=== PATIENT | female | born 1995 | race Caucasian/White ===

== ENCOUNTER 2019-12-02 19:23 | Emergency (ER) | payer MEDICAID ==
[2019-12-02] MEDS ORDERED: Take Home: Ketorolac 10 MG Tab, 4 Tab Pack PO ONE (19:42)
[2019-12-02] MEDS ORDERED: Take Home: Sulfamethoxazole/Trimethoprim 800-160 MG Tab, 2 Tab Pack PO ONE (19:42)
[2019-12-03 00:12] VITALS: BP 125/80; PULSE 90
--- NOTE | 2019-12-03 06:04 | EDM.PDOC ---
ED HPI GENERAL MEDICAL PROBLEM - General Chief Complaint: Upper Extremity Injury/Pain Stated Complaint: THUMB INFECTED Time Seen by Provider: 12/02/19 19:40 Source of Information: Reports: Patient History Limitations: Reports: No Limitations - History of Present Illness INITIAL COMMENTS - FREE TEXT/NARRATIVE: PtLivia presents to ER with complaints of cellulitis to her R thumb. She states that it started several days ago. She states that she was gathering wood for an art project, and thinks she injured the skin which caused the infection. Denies any fever or chills. No nausea or vomiting. No history of MRSA skin infection or IV drug use. She states that the area is quite tender to touch, and pain is worse with movement. Location: Reports: Upper Extremity, Right Right Finger-Thumb Pain Score (Numeric/FACES): 7 - Related Data Allergies Allergy/AdvReac Type Severity Reaction Status Date / Time No Known Drug Allergies Allergy Other Verified 12/02/19 19:43 Home Meds: Home Meds FLUoxetine HCl [Fluoxetine] 20 mg PO DAILY 03/16/18 [History] Ciprofloxacin HCl [Cipro] 1 tab PO BID 03/24/18 [History] Cyclobenzaprine [Flexeril] 5 mg PO TID PRN 03/24/18 [History] Past Medical History - Past Health History Medical/Surgical History: Denies Medical/Surgical History Psychiatric History: Reports: Addiction, Depression, Other (See Below) Other Psychiatric History: Patient has not used alcohol or drugs since September 2019 at the time of this visit. Social & Family History - Tobacco Use Smoking Status *Q: Current Every Day Smoker Years of Tobacco use: 12 Packs/Tins Daily: 0.5 - Recreational Drug Use Recreational Drug Use: Yes Drug Use in Last 12 Months: Yes Recreational Drug Use Frequency: Not Used In Over 3 Months Review of Systems - Review of Systems Review Of Systems: Comprehensive ROS is negative, except as noted in HPI. ED EXAM, GENERAL - Physical Exam Exam: See Below Exam Limited By: No Limitations General Appearance: Alert, WD/WN, No Apparent Distress Extremities: Increased Warmth, Redness, Other (edema to R thumb. No abscess noted. CMS intact) Course - Vital Signs Last Recorded V/S: Last Vital Signs Temp 36.7 C 12/02/19 19:45 Pulse 90 12/02/19 19:45 Resp 14 12/02/19 19:45 BP 125/80 12/02/19 19:45 Pulse Ox 100 12/02/19 19:45 - Orders/Labs/Meds Meds: Medications Discontinued Medications Generic Name Dose Route Start Last Admin Trade Name Kristy PRN Reason Stop Dose Admin Ketorolac Tromethamine 1 packet 12/02/19 19:42 12/02/19 19:53 Take Home: Ketorolac 10 Mg, 4 Tab Pack PO 12/02/19 19:43 1 packet ONETIME ONE Administration Trimethoprim/Sulfamethoxazole 1 packet 12/02/19 19:42 12/02/19 19:53 Take Home: Sulfameth/Trimet 800-160mg, 2 Pack PO 12/02/19 19:43 1 packet ONETIME ONE Administration Departure - Departure Time of Disposition: 19:53 Disposition: Home, Self-Care 01 Clinical Impression: Cellulitis - Discharge Information Instructions: Cellulitis, Adult, [id number], Ketorolac tablets, Sulfamet hoxazole; Trimethoprim, [id number] tablets Referrals: Cinthia Stacy, [Primary Care Provider] - Forms: ED Department Discharge Additional Instructions: Bactrim DS 1 twice daily for 10 days Toradol 10mg 1 tab every 6 hours as needed for pain Keep hand elevated Keep appointment with Dr. Stacy tomorrow Sepsis Event Note (ED) - Evaluation Sepsis Screening Result: No Definite Risk - Focused Exam Vital Signs: Vital Signs Temp Pulse Resp BP Pulse Ox 12/02/19 19:45 36.7 C 90 14 125/80 100 - Problem List Review Problem List Initiated/Reviewed/Updated: Yes - Assessment/Plan Plan: Bactrim DS 1 twice daily for 10 days Toradol 10mg 1 tab every 6 hours as needed for pain Keep hand elevated Keep appointment with Dr. Stacy tomorrow
== END 2019-12-02 19:53 | disposition home or self-care (01) ==
LOC: VM.ED 19:23
DX: L03.011 Cellulitis of right finger (principal); F32.9 Major depressive disorder, single episode, unspecified; F17.210 Nicotine dependence, cigarettes, uncomplicated; Z79.899 Other long term (current) drug therapy
CPT/HCPCS: 99283; A9270

== ENCOUNTER 2021-03-11 08:29 | Day surgery (SDC) | payer MEDICAID ==
[~2021-03-11 08:29] MED LIST: Lactated Ringers 1,000 ML IV SCH; Sodium Chloride 0.9% 10 ML Syringe FLUSH PRN
[2021-03-11] MEDS ORDERED: Propofol 200 MG/20 ML SDV ONE ×2 (09:47→10:56)
[2021-03-11] MEDS ORDERED: fentaNYL 100 MCG/2 ML SDV ONE (09:47)
[2021-03-11 11:34] VITALS: BP 105/71; PULSE 77
--- NOTE | 2021-03-12 14:28 | OR ---
PREOPERATIVE DIAGNOSES: Rectal bleeding and occasional abdominal pain. POSTOPERATIVE DIAGNOSES: 1. Grossly normal colon. 2. Left-sided diverticulosis. PROCEDURE PERFORMED: Total flexible colonoscopy with biopsies. ANESTHESIA: MAC anesthesia. COMPLICATIONS: None apparent. BLOOD LOSS: Minimal. FINDINGS: 1. Terminal ileum was grossly normal. 2. The colonic mucosa was grossly normal. 3. There was left-sided diverticulosis. 4. Random biopsies with cold forceps were taken of the terminal ileum, right colon, left colon, and rectum. Start time 1052, cecum 1056, stop time 1104. BOWEL PREP: [place] class 1. INDICATIONS FOR PROCEDURE: Wenceslao Espino is a 25-year-old female who has a history of rectal bleeding on and off for quite a few years. Also, some occasional abdominal pain. There is a question of inflammatory bowel disease in a great aunt, but this is a little bit uncertain. She is here for colonoscopy. DETAILS OF PROCEDURE: Informed consent was obtained. The patient was brought to the procedure room and placed in left lateral decubitus position. MAC anesthesia was induced per Anesthesia colleagues. Colonoscope was introduced into the rectum and advanced all the way to the cecum. The appendiceal orifice was photographed. The terminal ileum was intubated and examined. It was grossly normal. Biopsies were taken. The colonoscope was then slowly withdrawn. Random biopsies were taken. Retroflexed views obtained. The colonoscope was removed. The patient tolerated the procedure well, was awoken from anesthesia by Anesthesia colleagues without incident. PATHOLOGY: A) terminal ileum biopsies No specific pathologic abnormality. B) colon, random right biopsies No specific pathologic abnormality. C) colon, random left biopsies No specific pathologic abnormality. D) colon, random rectum biopsies No specific pathologic abnormality. RECOMMENDATIONS: No evidence of inflammatory bowel disease or other pathology. Recommend increasing fiber and water in diet to promote regular soft, formed stools. RKM: 03/11/2021 11:15:21 MODL: 03/11/2021 15:28:34 /[id number] CHRISTIAN
--- NOTE | 2021-03-22 11:48 | LETTER ---
03/22/2021 Wenceslao [place] [address] [place] [id number] RE: WENCESLAODIETER [employer] : 1995 Dear Livia Fortunato: I am writing to inform you of the pathology results of your recent colonoscopy. On inspection with the colonoscope, everything appeared normal. We also took numerous biopsies of the terminal ileum, which is the portion of the small bowel which empties into the colon, and your colon. All these biopsies were completely normal. I recommend that you increase fiber and water in your diet to help promote soft-formed stools which may decrease this occasional bleeding. You have no evidence of inflammatory bowel disease or other pathologies. Please let me know if you have any questions about this. Warmest regards,
[2021-04-01] MEDS ORDERED: Sodium Chloride 0.9% 10 ML Syringe FLUSH PRN (07:00)
[2021-04-01] MEDS ORDERED: Lactated Ringers 1,000 ML IV SCH (07:00)
== END 2021-03-11 12:50 | disposition home or self-care (01) ==
LOC: VM.SDS 08:29
PROVIDERS: ATTEND Student in an Organized Health Care Education/Training Program
DX: K57.31 Diverticulosis of large intestine without perforation or abscess with bleeding (principal); E03.9 Hypothyroidism, unspecified; E66.9 Obesity, unspecified; F32.A Depression, unspecified; F41.1 Generalized anxiety disorder; F17.210 Nicotine dependence, cigarettes, uncomplicated; Z79.890 Hormone replacement therapy; Z68.34 Body mass index [BMI] 34.0-34.9, adult; Z98.890 Other specified postprocedural states; Z79.899 Other long term (current) drug therapy; Z88.8 Allergy status to other drugs, medicaments and biological substances
CPT/HCPCS: 00811; 45380; J2704; J3010; J7120

== ENCOUNTER 2021-03-24 10:37 | Observation (INO) | payer MEDICAID ==
[~2021-03-24 10:37] MED LIST changes: +LEVONORGESTREL SCH; -Lactated Ringers 1,000 ML IV SCH; -Sodium Chloride 0.9% 10 ML Syringe FLUSH PRN
[2021-03-24] MEDS ORDERED: Lactated Ringers 1,000 ML IV ONE (11:45)
[2021-03-24] MEDS ORDERED: Ondansetron 4 MG/2 ML SDV IVPUSH ONE (11:45)
[2021-03-24] MEDS ORDERED: Promethazine 12.5 MG in Sodium Chloride 0.9% 100 ML IV ONE (11:45)
[2021-03-24] MEDS ORDERED: Sodium Chloride 0.9% 10 ML Syringe FLUSH PRN (11:45)
--- NOTE | 2021-03-24 11:59 | EDM.PDOC ---
<Aly Ortiz - Last Filed: 03/24/21 11:47> ED HPI GENERAL MEDICAL PROBLEM - General Chief Complaint: Gastrointestinal Problem Stated Complaint: DIVERTICULOSIS FLARE UP/VOMITING/BLOOD IN STOOL Time Seen by Provider: 03/24/21 11:45 Source of Information: Reports: Patient History Limitations: Reports: No Limitations - Related Data Allergies Allergy/AdvReac Type Severity Reaction Status Date / Time fluoxetine [From Prozac] Allergy Other Verified 03/24/21 15:49 sertraline [From Zoloft] Allergy Other Verified 03/24/21 15:49 venlafaxine [From Effexor] Allergy Hallucinati Verified 03/24/21 15:19 ons Home Meds: Home Meds Levothyroxine 75 mcg PO DAILY 03/01/21 [History] buPROPion HCL [Bupropion Xl] 300 mg PO DAILY 03/01/21 [History] cloNIDine [Catapres] 0.1 mg PO BEDTIME PRN 03/01/21 [History] clonazePAM [Clonazepam] 1 mg PO DAILY 03/01/21 [History] levonorgestreL [Mirena] 1 ea IUTERINE [id number] 03/01/21 [History] Amoxicillin/Potassium Clav [Amox-Clav 875-125 mg Tablet] 1 each PO Q8H 03/24/21 [History] Dextroamphetamine/Amphetamine [Adderall Xr 10 mg Capsule] 10 mg PO DAILY 03/24/21 [History] Hydrocodone/Acetaminophen [HYDROcodone-Acetaminophen 5-325 MG] 1 - 2 each PO Q6H PRN 03/24/21 [History] Past Medical History - Past Health History Medical/Surgical History: Denies Medical/Surgical History Gastrointestinal History: Reports: Other (See Below) Other Gastrointestinal History: chronic hepatitis C Psychiatric History: Reports: Addiction, Anxiety, Depression, Other (See Below) Other Psychiatric History: Patient has not used alcohol or drugs since September 2019 at the time of this visit. Endocrine/Metabolic History: Reports: Hypothyroidism, Obesity/BMI 30+ - Past Surgical History HEENT Surgical History: Reports: Other (See Below) Other HEENT Surgeries/Procedures: wisdom teeth Musculoskeletal Surgical History: Reports: Other (See Below) Other Musculoskeletal Surgeries/Procedures:: right thumb wound debridement Social & Family History - Caffeine Use Caffeine Use: Reports: None Departure - Departure Disposition: Refer to Observation Clinical Impression: Diverticulitis large intestine w/o perforation or abscess w/bleeding Nausea & vomiting Qualifiers: Vomiting type: unspecified Qualified Code(s): R11.2 - Nausea with vomiting, unspecified - Discharge Information <Jad Mejia - Last Filed: 03/25/21 12:00> ED HPI GENERAL MEDICAL PROBLEM - History of Present Illness INITIAL COMMENTS - FREE TEXT/NARRATIVE: Patient comes emergency department today from home with concerns of worsening abdominal pain and diverticulitis. This patient about a month ago had a colonoscopy where they noted that she had diverticular disease. She was seen in the clinic on 03/22/2021 with left lower quadrant pain nausea diarrhea she was diagnosed with diverticulitis without any laboratory evaluation or radiological evaluation. She was placed on Augmentin 1 tab p.o. 3 times daily and hydrocodone for pain. This morning when she woke up she had severe worsening of the pain in her left lower quadrant. She has had some bloody diarrhea. She does not have any fever or chills. She complains of nausea and vomiting at home. She has no chest pain no shortness of breath or difficulty breathing. No cough or congestion. No hematuria dysuria urinary frequency. No weak dizziness lightheadedness. No rash sores or lesions. ED ROS GENERAL - Review of Systems Review Of Systems: Comprehensive ROS is negative, except as noted in HPI. ED EXAM, GI/ABD - Physical Exam Exam: See Below Exam Limited By: No Limitations General Appearance: Alert, WD/WN, No Apparent Distress Ears: Normal External Exam Nose: Normal Inspection Throat/Mouth: Normal Inspection Head: Atraumatic, Normocephalic Neck: Normal Inspection Respiratory/Chest: No Respiratory Distress, Lungs Clear Cardiovascular: Normal Peripheral Pulses, Regular Rate, Rhythm, Tachycardia GI/Abdominal Exam: Normal Bowel Sounds, Soft, Guarding (Guarding to the left lower quadrant without rigidity or rebound), Tender (She has generalized tenderness throughout her abdomen). No: Distended, Rigid, Rebound Rectal (Female) Exam: Deferred Back Exam: Normal Inspection, Full Range of Motion. No: CVA Tenderness (L), CVA Tenderness (R) Extremities: Normal Inspection, Normal Range of Motion, Normal Capillary Refill Neurological: Alert, Oriented, Normal Cognition, No Motor/Sensory Deficits Psychiatric: Anxious Skin Exam: Intact, Cool, Diaphoretic (Mildly), Pallor Course - Vital Signs Last Recorded V/S: Last Vital Signs Temp 98.7 F 03/25/21 09:54 Pulse 78 03/25/21 09:54 Resp 19 03/25/21 09:54 BP 116/73 03/25/21 09:54 Pulse Ox 98 03/25/21 09:54 - Orders/Labs/Meds Orders: Active Orders 24 hr Category Date Time Status Patient Status [ADT] Routine ADT 03/24/21 14:43 Active Sodium Chloride 0.9% [Saline Flush] Med 03/24/21 11:45 Active 10 ml FLUSH ASDIRECTED PRN Saline Lock Insert [OM.PC] Routine Oth 03/24/21 11:45 Ordered Medication Orders Bupropion HCl (Bupropion 150 Mg Tab.Er) 300 mg PO DAILY [facility] Last Admin: 03/25/21 08:21 Dose: 300 mg Documented by: BETSY Clonazepam (Clonazepam 0.5 Mg Tab) 1 mg PO DAILY [facility] Last Admin: 03/25/21 08:22 Dose: 1 mg Documented by: BETSY Clonazepam (Clonazepam 0.5 Mg Tab) 0.5 mg PO Q8H PRN PRN Reason: Anxiety Clonidine HCl (Clonidine 0.1 Mg Tab) 0.1 mg PO BEDTIME PRN PRN Reason: nightmares Diphenhydramine HCl (Diphenhydramine 50 Mg/Ml Sdv) 25 mg IVPUSH Q6H PRN PRN Reason: Nausea/Vomiting Hydromorphone HCl (Hydromorphone 0.5 Mg/0.5 Ml Syringe) 0.5 mg IVPUSH Q2H PRN PRN Reason: Pain (moderate 4-6) Last Admin: 03/25/21 08:51 Dose: 0.5 mg Documented by: Admin: 03/25/21 06:43 Dose: 0.5 mg Documented by: Admin: 03/24/21 22:01 Dose: 0.5 mg Documented by: Admin: 03/24/21 18:34 Dose: 0.5 mg Documented by: JROGE ALBERTO Hydromorphone HCl (Hydromorphone 2 Mg Tab) 2 mg PO Q4H PRN PRN Reason: Pain Ciprofloxacin/Dextrose 400 mg/ (Premix) 200 mls @ 200 mls/hr IV Q12H [facility] Last Admin: 03/25/21 02:05 Dose: 200 mls/hr Documented by: VARUN Metronidazole 500 mg/ Premix 100 mls @ 100 mls/hr IV Q8H [facility] Last Admin: 03/25/21 06:41 Dose: 100 mls/hr Documented by: Infusion: 03/24/21 23:00 Dose: 100 mls/hr Documented by: Admin: 03/24/21 22:00 Dose: 100 mls/hr Documented by: VARUN Ketorolac Tromethamine (Ketorolac 30 Mg/Ml Sdv) 30 mg IVPUSH Q8H PRN PRN Reason: Pain (moderate 4-6) Lactulose (Lactulose Soln 10 Gm/15 Ml 30 Ml Ud Cup) 20 gm PO DAILY [facility] Last Admin: 03/25/21 11:50 Dose: 20 gm Documented by: BETSY Levothyroxine Sodium (Levothyroxine 75 Mcg Tab) 75 mcg PO ACBREAKFAST [facility] Last Admin: 03/25/21 06:49 Dose: 75 mcg Documented by: VARUN Non-Formulary Medication (Dextroamphetamine/Amphetamine [Adderall Xr 10 Mg Capsule]) 10 mg PO DAILY [facility] Levonorgestrel Intrauterine (Mirena ) 1 ea .XX [id number] [facility] Last Admin: 03/24/21 16:58 Dose: Not Given Documented by: JORGE ALBERTO Ondansetron HCl (Ondansetron 4 Mg/2 Ml Sdv) 4 mg IV Q6H PRN PRN Reason: Nausea/Vomiting Last Admin: 03/24/21 18:34 Dose: 4 mg Documented by: JORGE ALBERTO Sodium Chloride (Sodium Chloride 0.9% 10 Ml Syringe) 10 ml FLUSH ASDIRECTED PRN PRN Reason: Keep Vein Open Labs: Laboratory Tests 03/24/21 03/24/21 03/24/21 Range/Units 11:57 11:57 11:57 WBC 8.0 (4.0-10.0) x10^3/uL RBC 4.75 (4.00-5.50) x10^6/uL Hgb 13.3 (12.0-16.0) g/dL Hct 39.4 (33.0-47.0) % MCV 82.9 (78.0-93.0) fL MCH 28.0 (26.0-32.0) pg MCHC 33.8 (32.0-36.0) g/dL RDW Coeff of Dinesh 11.6 (10.0-15.0) % Plt Count 303 (130-400) x10^3/uL Immature Gran % (Auto) 0.10 (0.00-0.43) % Neut % (Auto) 61.3 (50.0-80.0) % Lymph % (Auto) 28.2 (25.0-50.0) % Hall % (Auto) 5.5 (2.0-11.0) % Eos % (Auto) 4.5 H (0.0-4.0) % Baso % (Auto) 0.4 (0.2-1.2) % Neut # (Auto) 4.9 (1.8-7.7) x10^3/uL Lymph # (Auto) 2.2 (1.0-4.8) x10^3/uL Hall # (Auto) 0.4 (0.0-0.8) x10^3/uL Eos # (Auto) 0.4 (0.0-0.5) x10^3/uL Baso # (Auto) 0.0 (0.0-0.2) x10^3/uL Immature Gran # (Auto) 0.01 (0.00-0.07) x10^3/uL Sodium 140 (136-145) mmol/L Potassium 4.3 (3.5-5.1) mmol/L Chloride 103 (98-107) mmol/L Carbon Dioxide 28 (21-32) mmol/L Anion Gap 13.3 (5-15) mmol/L BUN 9 (7-18) mg/dL Creatinine 0.8 (0.55-1.02) mg/dL Est Cr Clr Drug Dosing TNP Estimated GFR (MDRD) > 60 Glucose 85 (70-99) mg/dL Lactic Acid 0.3 L (0.4-2.0) mmol/L Calcium 9.2 (8.5-10.1) mg/dL Corrected Calcium 9.4 (8.5-10.1) mg/dL Total Bilirubin 0.4 (0.2-1.0) mg/dL AST 50 H (15-37) U/L ALT 149 H (14-59) U/L Alkaline Phosphatase 111 (46-116) U/L C-Reactive Protein 2.7 H (<=0.9) mg/dL Total Protein 7.9 (6.4-8.2) g/dL Albumin 3.8 (3.4-5.0) g/dL Globulin 4.1 Albumin/Globulin Ratio 0.93 Amylase 36 (25-115) U/L Lipase (73-393) U/L Procalcitonin (0.1-0.50) ng/mL Urine Color (YELLOW) Urine Appearance (CLEAR) Urine pH (5.0-8.0) Ur Specific [place] Urine Protein (NEGATIVE) mg/dL Urine Glucose (UA) (NEGATIVE) mg/dL Urine Ketones (NEGATIVE) mg/dL Urine Occult Blood (NEGATIVE) Urine Nitrite (NEGATIVE) Urine Bilirubin (NEGATIVE) Urine Urobilinogen (0.2) EU/dL Ur Leukocyte Esterase (NEGATIVE) Urine RBC (NOT SEEN) /HPF Urine WBC (NOT SEEN) /HPF Ur Squamous Epith Cells (NOT SEEN) /HPF Urine Bacteria (NOT SEEN) /HPF Urine Mucus (NOT SEEN) /LPF Urine HCG, Qual (NEGATIVE) SARS CoV-2 RNA Rapid LACHELLE (NEGATIVE) 03/24/21 03/24/21 03/24/21 Range/Units 11:57 11:57 13:15 WBC (4.0-10.0) x10^3/uL RBC (4.00-5.50) x10^6/uL Hgb (12.0-16.0) g/dL Hct (33.0-47.0) % MCV (78.0-93.0) fL MCH (26.0-32.0) pg MCHC (32.0-36.0) g/dL RDW Coeff of Dinesh (10.0-15.0) % Plt Count (130-400) x10^3/uL Immature Gran % (Auto) (0.00-0.43) % Neut % (Auto) (50.0-80.0) % Lymph % (Auto) (25.0-50.0) % Hall % (Auto) (2.0-11.0) % Eos % (Auto) (0.0-4.0) % Baso % (Auto) (0.2-1.2) % Neut # (Auto) (1.8-7.7) x10^3/uL Lymph # (Auto) (1.0-4.8) x10^3/uL Hall # (Auto) (0.0-0.8) x10^3/uL Eos # (Auto) (0.0-0.5) x10^3/uL Baso # (Auto) (0.0-0.2) x10^3/uL Immature Gran # (Auto) (0.00-0.07) x10^3/uL Sodium (136-145) mmol/L Potassium (3.5-5.1) mmol/L Chloride (98-107) mmol/L Carbon Dioxide (21-32) mmol/L Anion Gap (5-15) mmol/L BUN (7-18) mg/dL Creatinine (0.55-1.02) mg/dL Est Cr Clr Drug Dosing Estimated GFR (MDRD) Glucose (70-99) mg/dL Lactic Acid (0.4-2.0) mmol/L Calcium (8.5-10.1) mg/dL Corrected Calcium (8.5-10.1) mg/dL Total Bilirubin (0.2-1.0) mg/dL AST (15-37) U/L ALT (14-59) U/L Alkaline Phosphatase (46-116) U/L C-Reactive Protein (<=0.9) mg/dL Total Protein (6.4-8.2) g/dL Albumin (3.4-5.0) g/dL Globulin Albumin/Globulin Ratio Amylase (25-115) U/L Lipase 76 (73-393) U/L Procalcitonin < 0.05 L (0.1-0.50) ng/mL Urine Color (YELLOW) Urine Appearance (CLEAR) Urine pH (5.0-8.0) Ur Specific [place] Urine Protein (NEGATIVE) mg/dL Urine Glucose (UA) (NEGATIVE) mg/dL Urine Ketones (NEGATIVE) mg/dL Urine Occult Blood (NEGATIVE) Urine Nitrite (NEGATIVE) Urine Bilirubin (NEGATIVE) Urine Urobilinogen (0.2) EU/dL Ur Leukocyte Esterase (NEGATIVE) Urine RBC (NOT SEEN) /HPF Urine WBC (NOT SEEN) /HPF Ur Squamous Epith Cells (NOT SEEN) /HPF Urine Bacteria (NOT SEEN) /HPF Urine Mucus (NOT SEEN) /LPF Urine HCG, Qual Negative (NEGATIVE) SARS CoV-2 RNA Rapid LACHELLE (NEGATIVE) 03/24/21 03/24/21 Range/Units 13:15 15:05 WBC (4.0-10.0) x10^3/uL RBC (4.00-5.50) x10^6/uL Hgb (12.0-16.0) g/dL Hct (33.0-47.0) % MCV (78.0-93.0) fL MCH (26.0-32.0) pg MCHC (32.0-36.0) g/dL RDW Coeff of Dinesh (10.0-15.0) % Plt Count (130-400) x10^3/uL Immature Gran % (Auto) (0.00-0.43) % Neut % (Auto) (50.0-80.0) % Lymph % (Auto) (25.0-50.0) % Hall % (Auto) (2.0-11.0) % Eos % (Auto) (0.0-4.0) % Baso % (Auto) (0.2-1.2) % Neut # (Auto) (1.8-7.7) x10^3/uL Lymph # (Auto) (1.0-4.8) x10^3/uL Hall # (Auto) (0.0-0.8) x10^3/uL Eos # (Auto) (0.0-0.5) x10^3/uL Baso # (Auto) (0.0-0.2) x10^3/uL Immature Gran # (Auto) (0.00-0.07) x10^3/uL Sodium (136-145) mmol/L Potassium (3.5-5.1) mmol/L Chloride (98-107) mmol/L Carbon Dioxide (21-32) mmol/L Anion Gap (5-15) mmol/L BUN (7-18) mg/dL Creatinine (0.55-1.02) mg/dL Est Cr Clr Drug Dosing Estimated GFR (MDRD) Glucose (70-99) mg/dL Lactic Acid (0.4-2.0) mmol/L Calcium (8.5-10.1) mg/dL Corrected Calcium (8.5-10.1) mg/dL Total Bilirubin (0.2-1.0) mg/dL AST (15-37) U/L ALT (14-59) U/L Alkaline Phosphatase (46-116) U/L C-Reactive Protein (<=0.9) mg/dL Total Protein (6.4-8.2) g/dL Albumin (3.4-5.0) g/dL Globulin Albumin/Globulin Ratio Amylase (25-115) U/L Lipase (73-393) U/L Procalcitonin (0.1-0.50) ng/mL Urine Color Yellow (YELLOW) Urine Appearance Clear (CLEAR) Urine pH 5.5 (5.0-8.0) Ur Specific [place] <=1.005 Urine Protein Negative (NEGATIVE) mg/dL Urine Glucose (UA) Negative (NEGATIVE) mg/dL Urine Ketones Negative (NEGATIVE) mg/dL Urine Occult Blood Trace-intact H (NEGATIVE) Urine Nitrite Negative (NEGATIVE) Urine Bilirubin Negative (NEGATIVE) Urine Urobilinogen 0.2 (0.2) EU/dL Ur Leukocyte Esterase Negative (NEGATIVE) Urine RBC 0-5 (NOT SEEN) /HPF Urine WBC 0-5 (NOT SEEN) /HPF Ur Squamous Epith Cells Occasional H (NOT SEEN) /HPF Urine Bacteria Rare (NOT SEEN) /HPF Urine Mucus Not seen (NOT SEEN) /LPF Urine HCG, Qual (NEGATIVE) SARS CoV-2 RNA Rapid LACHELLE Negative (NEGATIVE) Meds: Medications Generic Name Dose Route Start Last Admin Trade Name Freq PRN Reason Stop Dose Admin Bupropion HCl 300 mg 03/25/21 08:00 03/25/21 08:21 Bupropion 150 Mg Tab.Er PO 300 mg DAILY BRET Administration Clonazepam 1 mg 03/25/21 08:00 03/25/21 08:22 Clonazepam 0.5 Mg Tab PO 1 mg DAILY [facility]RET Administration Clonazepam 0.5 mg 03/25/21 09:10 Clonazepam 0.5 Mg Tab PO Q8H PRN Anxiety Clonidine HCl 0.1 mg 03/24/21 16:07 Clonidine 0.1 Mg Tab PO BEDTIME PRN nightmares Diphenhydramine HCl 25 mg 03/24/21 17:35 Diphenhydramine 50 Mg/Ml Sdv IVPUSH Q6H PRN Nausea/Vomiting Hydromorphone HCl 0.5 mg 03/24/21 16:03 03/25/21 08:51 Hydromorphone 0.5 Mg/0.5 Ml Syringe IVPUSH 0.5 mg Q2H PRN Administration Pain (moderate 4-6) Hydromorphone HCl 2 mg 03/25/21 11:05 Hydromorphone 2 Mg Tab PO Q4H PRN Pain Ciprofloxacin/Dextrose 400 mg/ 200 mls @ 200 mls/hr 03/25/21 01:00 03/25/21 02:05 Premix IV 200 mls/hr Q12H BRET Administration Metronidazole 500 mg/ Premix 100 mls @ 100 mls/hr 03/24/21 22:00 03/25/21 06:41 IV 100 mls/hr Q8H BRET Administration Ketorolac Tromethamine 30 mg 03/24/21 16:06 Ketorolac 30 Mg/Ml Sdv IVPUSH Q8H PRN Pain (moderate 4-6) Lactulose 20 gm 03/25/21 11:15 03/25/21 11:50 Lactulose Soln 10 Gm/15 Ml 30 Ml Ud Cup PO 20 gm DAILY [facility]RET Administration Levothyroxine Sodium 75 mcg 03/25/21 07:00 03/25/21 06:49 Levothyroxine 75 Mcg Tab PO 75 mcg ACBREAKFAST [facility] Administration Non-Formulary Medication 10 mg 03/25/21 08:00 Dextroamphetamine/Amphetamine [Adderall Xr 10 Mg Capsule] PO DAILY [facility] Levonorgestrel 1 ea 03/23/21 08:00 03/24/21 16:58 Intrauterine (Mirena .XX Not Given ) [id number] [facility] Ondansetron HCl 4 mg 03/24/21 15:59 03/24/21 18:34 Ondansetron 4 Mg/2 Ml Sdv IV 4 mg Q6H PRN Administration Nausea/Vomiting Sodium Chloride 10 ml 03/24/21 11:45 Sodium Chloride 0.9% 10 Ml Syringe FLUSH ASDIRECTED PRN Keep Vein Open Discontinued Medications Generic Name Dose Route Start Last Admin Trade Name Freq PRN Reason Stop Dose Admin Hydromorphone HCl 0.5 mg 03/24/21 12:03 03/24/21 12:14 Hydromorphone 0.5 Mg/0.5 Ml Syringe IVPUSH 03/24/21 12:04 0.5 mg ONETIME ONE Administration Hydromorphone HCl 1 mg 03/24/21 13:30 03/24/21 13:46 Hydromorphone 1 Mg/Ml Syringe IVPUSH 03/24/21 13:31 1 mg ONETIME ONE Administration Hydromorphone HCl 1 mg 03/24/21 15:53 03/24/21 16:01 Hydromorphone 1 Mg/Ml Syringe IVPUSH 03/24/21 15:54 1 mg ONETIME ONE Administration Hydromorphone HCl 1 mg 03/24/21 16:03 Hydromorphone 1 Mg/Ml Syringe IVPUSH Q4H PRN Pain (severe 7-10) Lactated Ringer's 1,000 mls @ 999 mls/hr 03/24/21 11:45 03/24/21 12:15 Ringers, Lactated IV 03/24/21 12:45 999 mls/hr ONETIME ONE Administration Promethazine HCl 12.5 mg/ 100.5 mls @ 400 mls/hr 03/24/21 11:45 03/24/21 12:14 Sodium Chloride IV 03/24/21 12:00 400 mls/hr ONETIME ONE Administration Ciprofloxacin/Dextrose 400 mg/ 200 mls @ 200 mls/hr 03/24/21 14:06 03/24/21 14:28 Premix IV 03/24/21 15:05 200 mls/hr STAT ONE Administration Metronidazole 500 mg/ Premix 100 mls @ 100 mls/hr 03/24/21 14:06 03/24/21 15:29 IV 03/24/21 15:05 100 mls/hr ONETIME ONE Administration Lactated Ringer's 1,000 mls @ 150 mls/hr 03/24/21 14:15 03/25/21 04:26 Ringers, Lactated IV 150 mls/hr ASDIRECTED BRET Administration Iopamidol 100 ml 03/24/21 13:46 03/24/21 13:47 Iopamidol 612 Mg/Ml 100 Ml Bottle IVPUSH 03/24/21 13:47 100 ml ONETIME ONE Administration Ondansetron HCl 4 mg 03/24/21 11:45 03/24/21 12:14 Ondansetron 4 Mg/2 Ml Sdv IVPUSH 03/24/21 11:46 4 mg ONETIME ONE Administration - Radiology Interpretation Free Text/Narrative:: Uncomplicated sigmoid diverticulitis per radiology - Re-Assessments/Exams Free Text/Narrative Re-Assessment/Exam: IV was established labs were drawn. The patient was given IV fluids. Dilaudid Zofran and Phenergan for pain. Laboratory evaluation is rather unremarkable. With a normal CBC. Her lactic acid is 0.3. She does have a mild elevation of her AST ALT but she does have chronic hepatitis C. She has a normal T bili of 0.4. Her lipase is normal at 76. Her procalcitonin is negative. Urinalysis is noninfectious appearing. CT abdomen pelvis shows uncomplicated sigmoid diverticulitis. Per radiology. Patient was given Cipro and Flagyl IV piggyback. She repeated Dilaudid multiple times due to the severe pain and continued nausea. I explained to the patient that she has uncomplicated sigmoid diverticulitis without any evidence of abscess or free air or microperforation. Although she clearly has failed outpatient therapy. She has worsening symptomatology over 48-hour. Being on appropriate antibiotic therapy of Augmentin 1 tab p.o. 3 times daily. Her diarrhea could be somewhat due to the Augmentin although it would be unlikely for it to be bloody as it was. I do not feel that it is appropriate to discharge her home at this time with this amount of pain despite her uncomplicated diverticulitis in her laboratory evaluation she is clearly shown that she has failed outpatient therapy. She is comfortable with the plan of admission for observation and her questions were answered. Departure - Departure Time of Disposition: 15:00 - Problem List Review Problem List Initiated/Reviewed/Updated: Yes - My Orders Last 24 Hours: My Active Orders 03/24/21 14:43 Patient Status [ADT] Routine - Assessment/Plan Admission H&P: Please use this note as an admission H&P Last 24 Hours: My Active Orders 03/24/21 14:43 Patient Status [ADT] Routine Assessment:: A/P: Acute diagnosis #1: Acute uncomplicated sigmoid diverticulitis. Worsening pain and blood stools. Failed outpatient oral therapy. No sign of abscess or perf CT 03/24/21. Nrml WBC lactic. Was on Augmentin IV hydration LR 150mls/hr Cipro 400mg IVP q12hrs. Flagyl 500mg IVPB q8hrs. Dilaudid PRN pain. Clear liquid diet. Once symptoms improve consider slowly advancing diet as tolerated. #2: Intractable pain form #1 Was on [place] at home. Dilaudid 1 mg q4hrs prn severe, 0.5mg IV q2hrs prn. Ketorolac 30mg IVP TID prn max dose 5 doses. #3: Nausea vomiting from #1. Mild dehydration. LR as above. Zofran 4mg IVP q6hrs prn. Benadryl 25mg q6hrs prn Chronic Diagnosis: Hepatitis C. No coma. Mild elevation of AST ALT nrml T steven monitor. KEITH Continue home clonazepam, adderal, topamax, wellbutril clonidine Hypothyroidism continue synthroid. Sepsis: No signs of Sepsis at this time. VTE: Short stay low risk TEDS. Code Status: Full. Plan will be to admit this patient observation. Although her laboratory ev aluation is pretty much unremarkable her CT scan shows uncomplicated diverticulitis. She has been at home with oral antibiotic and pain medicine and she is having worsening of her symptoms. She has developed nausea and vomiting worsening pain as well as bloody stools. Due to the worsening symptoms and the failed outpatient therapy will place her into observation at this time with aggressive management as above. I did discuss this case with the patient's PCP Dr. Karla Stacy and she will most likely see the patient in the morning. The patient is comfortable with this plan and her questions are answered. I do not anticipate that she will need more than 48 hours stay in the hospital. Although if her symptoms worsen her laboratory evaluation as well she may need to be switched to inpatient with surgical consultation I do not anticipate this but this is a possibility.
[2021-03-24] MEDS ORDERED: HYDROmorphone 0.5 MG/0.5 ML Syringe IVPUSH ONE (12:03)
[2021-03-24 12:26] LABS: CHLORIDE,CL 103 mmol/L (98-107); SODIUM,NA 140 mmol/L (136-145)
[2021-03-24 12:30] LABS: ANION GAP 13.3 mmol/L (5-15)
--- NOTE | 2021-03-24 12:35 | CT ---
[id number] CT/CT Abdomen Pelvis W IV EXAM: CT Abdomen Pelvis W IV CLINICAL DATA: BLOOD IN STOOLS, HX DIVIRTICULITIS COMPARISON STUDY: None. FINDINGS: Lung bases are clear. Liver, spleen, gallbladder, pancreas, adrenal glands, and kidneys are unremarkable. Colonic diverticulosis. In the region of multiple diverticula involving the proximal sigmoid colon there is surrounding inflammatory change and wall thickening. No fluid collection. No lymphadenopathy, free fluid, or pneumoperitoneum. Intrauterine device in place. Scattered changes of spondylosis the spine. No fracture or osseous lesion. IMPRESSION: Acute uncomplicated sigmoid diverticulitis. Sandro Vázquez DO 03/24/21 [id number] Thank you for allowing us to participate in the care of your patient.
[2021-03-24] MEDS ORDERED: HYDROmorphone 1 MG/ML Syringe IVPUSH ONE ×2 (13:30→15:53)
[2021-03-24] MEDS ORDERED: Iopamidol 612 MG/ML 100 ML Bottle IVPUSH ONE (13:46)
[2021-03-24] MEDS ORDERED: metroNIDAZOLE/Normal Saline 500 MG in Premix Bag 1 BAG IV ONE (14:06)
[2021-03-24] MEDS ORDERED: Ciprofloxacin in D5W 400 MG in Premix Bag 1 BAG IV ONE ×2 (14:06)
[2021-03-24] MEDS: Lactated Ringers 1,000 ML IV SCH ×3 (14:31→22:04)
[2021-03-24] MEDS ORDERED: HYDROmorphone 1 MG/ML Syringe IVPUSH PRN (16:03)
[2021-03-24] MEDS ORDERED: Ketorolac 30 MG/ML SDV IVPUSH PRN (16:06)
[2021-03-24] MEDS ORDERED: cloNIDine 0.1 MG Tab PO PRN (16:07)
[2021-03-24] MEDS ORDERED: diphenhydrAMINE 50 MG/ML SDV IVPUSH PRN (17:35)
[2021-03-24] MEDS: Ondansetron 4 MG/2 ML SDV IV PRN (18:34)
[2021-03-24] MEDS: HYDROmorphone 0.5 MG/0.5 ML Syringe IVPUSH PRN ×2 (18:34→22:01)
[2021-03-24] MEDS: metroNIDAZOLE/Normal Saline 500 MG in Premix Bag 1 BAG IV SCH (22:00)
[2021-03-25] MEDS: Ciprofloxacin in D5W 400 MG in Premix Bag 1 BAG IV SCH ×4 (02:05→12:49)
[2021-03-25] MEDS: Lactated Ringers 1,000 ML IV SCH (04:26)
[2021-03-25] MEDS: metroNIDAZOLE/Normal Saline 500 MG in Premix Bag 1 BAG IV SCH ×2 (06:41→14:38)
[2021-03-25] MEDS: HYDROmorphone 0.5 MG/0.5 ML Syringe IVPUSH PRN ×4 (06:43→17:04)
[2021-03-25] MEDS: Levothyroxine 75 MCG Tab PO SCH (06:49)
[2021-03-25] MEDS ORDERED: AMPHETAMINE PO SCH (08:00)
[2021-03-25] MEDS ORDERED: DEXTROAMPHETAMINE PO SCH (08:00)
[2021-03-25] MEDS ORDERED: [UNRECOGNIZED DRUG - OTHER] PO SCH (08:00)
[2021-03-25] MEDS: buPROPion 150 MG Tab.ER PO SCH (08:21)
[2021-03-25] MEDS: ClonazePAM 0.5 MG Tab PO SCH (08:22)
[2021-03-25 08:50] LABS: CHLORIDE,CL 106 mmol/L (98-107); SODIUM,NA 143 mmol/L (136-145)
[2021-03-25 09:05] LABS: ANION GAP 12.1 mmol/L (5-15)
[2021-03-25] MEDS ORDERED: ClonazePAM 0.5 MG Tab PO PRN (09:10)
[2021-03-25] MEDS ORDERED: HYDROmorphone 2 MG Tab PO PRN (11:05)
[2021-03-25] MEDS: Lactulose Soln 10 GM/15 ML 30 ML UD Cup PO SCH (11:50)
[2021-03-25] MEDS: Ondansetron 4 MG/2 ML SDV IV PRN (12:48)
--- NOTE | 2021-03-25 13:30 | PN ---
Progress Note for KYUNG BUCIO Date: 03/25/2021 Room #: [facility] HISTORY OF PRESENT ILLNESS: This is hospital day #2 on a 25-year-old admitted for observation with diverticulitis who is failing outpatient treatment. She did get prescribed antibiotics in the clinic on 03/22/2021. She started having the severe abdominal pain the day after [place], the and then yesterday morning she had not been having a lot of bowel movements, but she just started to pass blood mixed with stool. She had been having intermittent blood for several months and in fact underwent a colonoscopy on 03/11/2021 showing diverticulosis and random biopsies did come back negative. She was placed on Augmentin, but she was having some nausea. She did not have any vomiting. She has tolerated clear liquids and is actually asking to advance her diet. The patient is passing gas. She has not had a bowel movement here. She did have an abdominal CT yesterday on admission which showed her to have the uncomplicated diverticulitis. Her white count was normal. She has no direct closely related family members with Crohn's or ulcerative colitis. She does have an IUD. 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 OBJECTIVE: Vital Signs: Her temperature is 98.7, pulse 78, blood pressure 116/73, respiratory rate 19, O2 of 98 on room air. General: She is in no acute distress. Heart: Regular rate and rhythm. S1, S2 without murmur. Lungs: Lung sounds are clear to auscultation bilaterally without crackles or wheezes. Abdomen: Positive bowel sounds. Soft, nondistended. No severe tenderness. No rebound. No guarding. Extremities: Warm, dry. No edema. Mental Status: Alert and orientated x3. LABORATORY DATA: Lab work shows white count continues to be normal at 4.8, hemoglobin 12.2, platelets 242. Sodium 143, potassium 4.1, chloride 106, bicarb 29, BUN 7, creatinine 0.9, glucose 82, lactic 0.7, bilirubin 0.4, AST 56 just up slightly, ALT down to 134, CRP down to 2.5, albumin 3.2. UA negative for wbc's or rbc's. ASSESSMENT: 1. Acute uncomplicated diverticulitis. She is on day #2 of IV Cipro and Flagyl. She had been started on Augmentin before. We will continue with the same antibiotics and we will stop IV fluids. We will advance her diet slowly as tolerated. 2. Intractable pain from diverticulitis. She had received currently 4 doses of the 0.5 of Dilaudid, last this morning around 9 a.m. Did encourage her to try the oral Dilaudid. She was on [place] at home. 3. Nausea. She has Zofran available. 4. History of hepatitis C, treated. 5. Mildly elevated LFTs. They are stable. 6. Hypothyroidism treated with Synthroid. 7. General anxiety disorder. We will continue her home Klonopin and also have it available p.r.n. Some of her other medications are on pending status due to not being available in our pharmacy. PLAN: The patient will continue acute cares. We will stop IV fluids. We will continue IV antibiotics. Anticipate that she will be discharged home as soon as tomorrow. She is on KARTHIKEYAN stockings for DVT prophylaxis. Anticipate her stay to be less than 48 hours. She was encouraged to get up and walk in the halls and we will also start lactulose to see if that promotes some softer BMs. She is not having any rectal pain or ongoing GI bleeding. Code level 1. MKA: 03/25/2021 11:20:30 MODL: 03/25/2021 13:02:24 /[id number]
[2021-03-26] MEDS: metroNIDAZOLE/Normal Saline 500 MG in Premix Bag 1 BAG IV SCH (09:25)
[2021-03-26] MEDS: Levothyroxine 75 MCG Tab PO SCH (09:25)
[2021-03-26] MEDS: Ciprofloxacin in D5W 400 MG in Premix Bag 1 BAG IV SCH ×2 (09:25)
[2021-03-26] MEDS: Lactulose Soln 10 GM/15 ML 30 ML UD Cup PO SCH (09:25)
[2021-03-26] MEDS: ClonazePAM 0.5 MG Tab PO SCH (09:26)
[2021-03-26] MEDS: buPROPion 150 MG Tab.ER PO SCH (09:26)
[2021-03-26 10:10] VITALS: BP 121/68; PULSE 68
[2021-03-26] MEDS ORDERED: Ondansetron 4 MG Tab.DIS PO PRN (10:26)
[2021-03-26] MEDS ORDERED: Take Home: Ondansetron 4 MG Tab.DIS, 5 Tab Pack PO ONE (10:37)
[2021-03-26] MEDS ORDERED: HYDROmorphone 2 MG Tab ONE (10:45)
--- NOTE | 2021-03-26 11:12 | DISCH ---
PRIMARY DISCHARGE DIAGNOSES: 1. Acute uncomplicated diverticulitis. 2. Hematochezia with known diverticulosis based on colonoscopy on 03/11/2021. 3. Intractable pain from diverticulitis, improving. 4. Constipation. She did have a bowel movement today with lactulose. 5. History of hepatitis C, treated. 6. History methamphetamine use in remission. 7. Hypothyroidism, treated. 8. Generalized anxiety disorder, on Klonopin, managed by [facility] in [place]. 9. Mildly elevated LFTs stable at 56 AST and 134 ALT on discharge. REASON FOR ADMISSION: On the date of admission, this 25-year-old female who had been failing outpatient Augmentin since 03/22/2021 for diverticulitis or left lower quadrant pain that started on 03/20/2021, came into the ER and was treated with IV pain and nausea medications, and her CT showed an acute uncomplicated diverticulitis and her symptoms were consistent with this. Her white count was normal. She received IV fluids. She was receiving IV Dilaudid and she was 0.5, but she was weaned down on this dose to using none in over 12 hours. She had not tried the oral dose, she had not tried Toradol. She otherwise was tolerating a full diet and was eating well. She was feeling much better and hoping to be discharged home to go home and eat lunch at home. She had no fevers during her stay. She did have a mild cough that developed here. COVID testing negative on admission. She said her children were having cough at home. No sore throat. OBJECTIVE: Vital Signs: On discharge, her temperature 96.6, pulse 68, blood pressure 121/60, respiratory rate 18, O2 of 100% on room air. General: She is in no acute distress. Heart: Regular rate and rhythm. S1, S2 without murmur. Lungs: Lung sounds are clear to auscultation bilaterally without crackles or wheezes. Abdomen: Positive bowel sounds. Soft. No distention. There is some mild left lower quadrant tenderness, but no rebound or guarding. DISCHARGE PLANS AND INSTRUCTIONS: She will follow up with Dr. Stacy in the clinic in 1 to 2 weeks with a hepatic panel at that time. She will have Augmentin dosing that was ordered through the clinic 3 times a day to finish at least 8 more days which she had left over from her previous script. She was on Cipro and Flagyl here IV. She did have a spell yesterday for about 20 to 30 seconds after getting IV Cipro. She felt like she had sleep paralysis. There were some minor convulsions per nursing, but the patient states she was aware of things and could hear what they were saying. Therefore, we recommended not to have IV Cipro again and would consider using it oral and limited use as an outpatient and I will add this to her [place] chart. She did receive 4 of the 2 mg hydromorphone pills to use at home if needed for pain, but was encouraged to use Tylenol and ibuprofen as well. She did have 1 hydrocodone left over from her previous clinic script of 8. [place] drug monitoring was checked. She was also given Zofran 2 pills as she did use some IV Zofran here and she was encouraged to cherry picker operator senna Plus at the pharmacy. She did receive a dose of lactulose here, but we did not order her a prescription for that on discharge, but encouraged increased liquid intake like water and juices. MKA: 03/26/2021 10:36:56 MODL: 03/26/2021 11:04:56 /[id number]
== END 2021-03-26 11:20 | disposition home or self-care (01) ==
LOC: VM.ED 10:37 → VM.MS 15:17
PROVIDERS: ADMIT Nurse Practitioner Family; ATTEND Nurse Practitioner Family
DX: K57.32 Diverticulitis of large intestine without perforation or abscess without bleeding (principal); K59.00 Constipation, unspecified; E03.9 Hypothyroidism, unspecified; F15.90 Other stimulant use, unspecified, uncomplicated; F41.1 Generalized anxiety disorder; R79.89 Other specified abnormal findings of blood chemistry; B19.20 Unspecified viral hepatitis C without hepatic coma; Z79.890 Hormone replacement therapy; Z20.822 Contact with and (suspected) exposure to COVID-19
CPT/HCPCS: 36415; 74177; 80053; 81001; 81025; 82150; 83605; 83690; 84145; 85025; 86140; 96365; 96367; 96375; 96376; 99285-25; A9270-GY; G0378; J0744; J1170; J2405; J2550; J3490; J7120; Q0162; Q9967; U0002

== ENCOUNTER 2021-04-01 11:21 | Emergency (ER) | payer MEDICAID ==
[2021-04-01 11:36] VITALS: BP 116/71; PULSE 80
== END 2021-04-01 12:05 | disposition home or self-care (01) ==
LOC: VM.ED 11:21
DX: K57.32 Diverticulitis of large intestine without perforation or abscess without bleeding (principal); E66.9 Obesity, unspecified; Z68.30 Body mass index [BMI] 30.0-30.9, adult; Z88.8 Allergy status to other drugs, medicaments and biological substances; Z79.899 Other long term (current) drug therapy; Z72.0 Tobacco use
CPT/HCPCS: 99283

== ENCOUNTER 2021-06-06 01:12 | Emergency (ER) | payer OTHER, MEDICAID ==
[2021-06-06] MEDS ORDERED: Sodium Chloride 0.9% 10 ML Syringe FLUSH PRN ×2 (01:20→01:28)
[2021-06-06] MEDS ORDERED: Ondansetron 4 MG/2 ML SDV IVPUSH ONE (01:20)
[2021-06-06] MEDS ORDERED: fentaNYL 100 MCG/2 ML SDV IVPUSH ONE (01:21)
[2021-06-06 02:05] LABS: CHLORIDE,CL 106 mmol/L (98-107); SODIUM,NA 142 mmol/L (136-145)
[2021-06-06 02:06] LABS: ANION GAP 12.8 mmol/L (5-15)
[2021-06-06] MEDS ORDERED: Iopamidol 612 MG/ML 100 ML Bottle IVPUSH ONE (02:12)
[2021-06-06 02:26] VITALS: BP 128/84; PULSE 84
== END 2021-06-06 04:22 | disposition home or self-care (01) ==
LOC: VM.ED 01:12
DX: K57.32 Diverticulitis of large intestine without perforation or abscess without bleeding (principal); K59.00 Constipation, unspecified; E03.9 Hypothyroidism, unspecified; E66.9 Obesity, unspecified; Z68.30 Body mass index [BMI] 30.0-30.9, adult; Z88.1 Allergy status to other antibiotic agents; Z88.8 Allergy status to other drugs, medicaments and biological substances; Z79.899 Other long term (current) drug therapy
CPT/HCPCS: 74177; 80053; 81003; 82150; 83690; 85025; 86140; 96374; 96375; 99284; 99284-25; J2405; J3010; Q9967

== ENCOUNTER 2022-02-14 10:29 | Emergency (ER) | payer MEDICAID, OTHER ==
[2022-02-14] MEDS ORDERED: Sodium Chloride 0.9% 10 ML Syringe FLUSH PRN (11:55)
[2022-02-14] MEDS ORDERED: Sodium Chloride 0.9% 1,000 ML IV ONE (11:55)
[2022-02-14] MEDS ORDERED: Morphine 2 MG/ML SYRINGE IVPUSH ONE (11:55)
[2022-02-14] MEDS ORDERED: Ondansetron 4 MG/2 ML SDV IVPUSH ONE (11:55)
[2022-02-14 12:28] LABS: CHLORIDE,CL 103 mmol/L (98-107); SODIUM,NA 138 mmol/L (136-145)
[2022-02-14 12:29] LABS: ANION GAP 8.2 mmol/L (5-15); ESTIMATED GFR 121 mL/min (>=60)
[2022-02-14 14:13] VITALS: BP 112/70; PULSE 68
== END 2022-02-14 13:45 | disposition home or self-care (01) ==
LOC: VM.ED 10:29
DX: K57.90 Diverticulosis of intestine, part unspecified, without perforation or abscess without bleeding (principal); E03.9 Hypothyroidism, unspecified; E66.9 Obesity, unspecified; Z68.23 Body mass index [BMI] 23.0-23.9, adult; Z88.1 Allergy status to other antibiotic agents; Z88.8 Allergy status to other drugs, medicaments and biological substances; Z79.899 Other long term (current) drug therapy
CPT/HCPCS: 74176; 80053; 82150; 83690; 85025; 86140; 96361; 96374; 96375; 99284; J2270; J2405; J7030

== ENCOUNTER 2022-05-07 06:42 | Emergency (ER) | payer MEDICAID, OTHER ==
[2022-05-07 07:36] LABS: CHLORIDE,CL 107 mmol/L (98-107); SODIUM,NA 143 mmol/L (136-145)
[2022-05-07 07:40] LABS: PTT,PARTIAL THROMBOPLSTIN TIME 28.1 SEC (20.5-30.9)
[2022-05-07 07:41] LABS: ANION GAP 11.6 mmol/L (5-15); ESTIMATED GFR 79 mL/min (>=60)
[2022-05-07 11:00] VITALS: BP 121/88; PULSE 96
== END 2022-05-07 08:45 | disposition short-term general hospital (02) ==
LOC: VM.ED 06:42
DX: O20.9 Hemorrhage in early pregnancy, unspecified (principal); O99.281 Endocrine, nutritional and metabolic diseases complicating pregnancy, first trimester; E03.9 Hypothyroidism, unspecified; O99.211 Obesity complicating pregnancy, first trimester; E66.9 Obesity, unspecified; Z88.1 Allergy status to other antibiotic agents; Z88.8 Allergy status to other drugs, medicaments and biological substances; Z79.899 Other long term (current) drug therapy; Z3A.11 11 weeks gestation of pregnancy
CPT/HCPCS: 36415; 80053; 81001; 81025; 85025; 85610; 85730; 86140; 87086; 87088; 99284

== ENCOUNTER 2023-04-06 09:26 | Emergency (ER) | payer MEDICAID, OTHER ==
[2023-04-06] MEDS ORDERED: Sodium Chloride 0.9% 10 ML Syringe FLUSH PRN (09:38)
[2023-04-06] MEDS ORDERED: Ondansetron 4 MG/2 ML SDV IVPUSH ONE (09:39)
[2023-04-06] MEDS ORDERED: HYDROmorphone 0.5 MG/0.5 ML Syringe IVPUSH ONE ×2 (09:40→11:52)
[2023-04-06] MEDS ORDERED: Sodium Chloride 0.9% 1,000 ML IV SCH (09:45)
[2023-04-06 09:49] LABS: BASOPHILS PERCENT AUTO 0.1 % (0.2-1.2); EOSINOPHILS ABSOLUTE AUTO 0.4 x10^3/uL (0.0-0.5); EOSINOPHILS PERCENT AUTO 3.2 % (0.0-4.0); HEMATOCRIT 42.4 % (33.0-47.0); HEMOGLOBIN 13.8 g/dL (12.0-16.0); IMMATURE GRAN ABSOLUTE AUTO 0.02 x10^3/uL (0.00-0.07); LYMPHOCYTES ABSOLUTE AUTO 0.8 x10^3/uL (1.0-4.8); LYMPHOCYTES PERCENT AUTO 6.8 % (25.0-50.0); MEAN CORPUSCULAR HEMOGLOBIN 28.1 pg (26.0-32.0); MEAN CORPUSCULAR HGB CONC 32.5 g/dL (32.0-36.0); MEAN CORPUSCULAR VOLUME 86.4 fL (78.0-93.0); MONOCYTES ABSOLUTE AUTO 0.3 x10^3/uL (0.0-0.8); MONOCYTES PERCENT AUTO 2.4 % (2.0-11.0); NEUTROPHILS ABSOLUTE AUTO 10.9 x10^3/uL (1.8-7.7); NEUTROPHILS PERCENT AUTO 87.3 % (50.0-80.0); PLATELET COUNT,PLT 275 x10^3/uL (130-400); RED BLOOD CELL COUNT 4.91 x10^6/uL (4.00-5.50); WHITE BLOOD CELL COUNT,WBC 12.4 x10^3/uL (4.0-10.0)
[2023-04-06 10:11] LABS: A/G RATIO 0.89; ALANINE AMINOTRANSFERASE,ALT 41 U/L (14-59); ALKALINE PHOSPHATASE 73 U/L (46-116); AMYLASE 67 U/L (25-115); ANION GAP 13.8 mmol/L (5-15); ASPARTATE AMNIOTRANSFERASE,AST 21 U/L (15-37); BILIRUBIN TOTAL 0.7 mg/dL (0.2-1.0); BLOOD UREA NITROGEN,BUN 16 mg/dL (7-18); C-REACTIVE PROTEIN < 0.50 mg/dL (<=0.50); CALCIUM 8.8 mg/dL (8.5-10.1); CARBON DIOXIDE,CO2 28 mmol/L (21-32); CHLORIDE,CL 104 mmol/L (98-107); CREATININE 0.8 mg/dL (0.55-1.02); ESTIMATED GFR 102 mL/min (>=60); GLUCOSE RANDOM 99 mg/dL (70-99); LIPASE 37 U/L (19-71); POTASSIUM,K 4.8 mmol/L (3.5-5.1); PROTEIN TOTAL,TP 8.5 g/dL (6.4-8.2); SODIUM,NA 141 mmol/L (136-145)
[2023-04-06] MEDS ORDERED: Iopamidol 612 MG/ML 100 ML Bottle IVPUSH ONE (10:11)
[2023-04-06 10:13] LABS: LACTIC ACID 0.7 mmol/L (0.4-2.0)
[2023-04-06 10:28] LABS: BILIRUBIN,URINE NEGATIVE (NEGATIVE); COLOR,URINE YELLOW (YELLOW); GLUCOSE,URINE NEGATIVE (NEGATIVE); KETONES,URINE NEGATIVE (NEGATIVE); LEUKOCYTE ESTERASE,URINE NEGATIVE (NEGATIVE); NITRITE,URINE NEGATIVE (NEGATIVE); OCCULT BLOOD,URINE MODERATE (NEGATIVE); PH,URINE 5.5 (5.0-8.0); PROTEIN,URINE NEGATIVE (NEGATIVE); UROBILINOGEN,URINE 0.2 EU/dL (0.2)
[2023-04-06 10:29] LABS: APPEARANCE,URINE SLIGHTLY CLOUDY (CLEAR)
[2023-04-06 10:31] LABS: CORONAVIRUS COVID-19 NAA NEGATIVE (NEGATIVE); INFLUENZA A NAA NEGATIVE (NEGATIVE); INFLUENZA B NAA NEGATIVE (NEGATIVE); RESPIRATORY SYNCYTIAL VIR NAA NEGATIVE (NEGATIVE)
[2023-04-06 10:41] LABS: BACTERIA,URINE RARE /HPF (NOT SEEN); MUCUS,URINE NOT SEEN /LPF (NOT SEEN); SQUAMOUS EPITHELIAL CELLS,UR FEW /HPF (NOT SEEN); WBC,URINE 0-5 /HPF (NOT SEEN)
[2023-04-06] MEDS ORDERED: Prochlorperazine 10 MG/2 ML SDV IV ONE (11:19)
[2023-04-06] MEDS ORDERED: Metoclopramide 10 MG/2 ML SDV IVPUSH ONE (11:50)
[2023-04-06] MEDS ORDERED: Lactated Ringers 1,000 ML IV ONE (11:52)
[2023-04-06 13:31] VITALS: BP 123/75; PULSE 74
== END 2023-04-06 13:17 | disposition home or self-care (01) ==
LOC: VM.ED 09:26
DX: K52.9 Noninfective gastroenteritis and colitis, unspecified (principal); N83.202 Unspecified ovarian cyst, left side; E03.9 Hypothyroidism, unspecified; E66.9 Obesity, unspecified; Z79.899 Other long term (current) drug therapy; Z88.1 Allergy status to other antibiotic agents; Z88.8 Allergy status to other drugs, medicaments and biological substances; Z88.5 Allergy status to narcotic agent; Z20.822 Contact with and (suspected) exposure to COVID-19
CPT/HCPCS: 0241U; 74177; 80053; 81001; 81025; 82150; 83605; 83690; 83735; 85025; 86140; 96361; 96374; 96375; 96376; 99284; J0780; J1170; J2405; J2765; J7030; J7120; Q9967

== ENCOUNTER 2023-08-02 02:57 | Emergency (ER) | payer MEDICAID ==
[2023-08-02 03:17] VITALS: BP 140/78; PULSE 91
[2023-08-02] MEDS ORDERED: Lidocaine 1% 10 ML MDV INJECT ONE (03:20)
[2023-08-02] MEDS: LORazepam 0.5 MG Tab PO ONE (03:24)
== END 2023-08-02 04:41 | disposition home or self-care (01) ==
LOC: VM.ED 02:57
DX: S01.511A Laceration without foreign body of lip, initial encounter (principal); S01.81XA Laceration without foreign body of other part of head, initial encounter; E03.9 Hypothyroidism, unspecified; E66.9 Obesity, unspecified; Z88.8 Allergy status to other drugs, medicaments and biological substances; Z88.1 Allergy status to other antibiotic agents; Z88.5 Allergy status to narcotic agent; W22.09XA Striking against other stationary object, initial encounter
CPT/HCPCS: 12011; 70450; 70486; 99284; A9270; J3490